=== PATIENT | female | born 1960 | race Hispanic/Latino ===

== ENCOUNTER 2018-02-10 10:32 | Emergency (ER) | payer SELFPAY ==
[~2018-02-10] VITALS: Ht 166.4 cm; Wt 69.1 kg
[~2018-02-10 10:32] MED LIST: ALAWAY0.025 % OP; FOLIC ACID5 MG PO; HYDROCORTISO2.51 EX; MAXEPA1000 M1 PO; RHEUMATREX2.5 M1 PO; VIT B-COMPLX100 MG PO; VITAMIN C500 M6 PO; VITAMIN D31000 UNI1 PO; [UNRECOGNIZED DRUG - CODE] EX
[2018-02-10 11:15] LABS: HEMATOCRIT 43.6 % (37.0-47.0); HEMOGLOBIN 14.1 g/dl (12.0-16.0); IMMATURE GRANULOCYTES 0.3 % (0.0-5.0); MEAN CELL VOLUME 88.6 fL CALC (80.0-100.0); MEAN CORPUSCULAR HGB 28.7 pG CALC (26.0-32.0); MEAN CORPUSCULAR HGB CONC 32.3 g/L CALC (32.0-36.0); NEUT# 5.24 thou/uL (2.00-7.15); RED BLOOD COUNT 4.92 mill/uL (4.20-5.60); RED CELL DISTRI WIDTH 13.7 % (11.5-15.5)
[2018-02-10 11:42] LABS: ALKALINE PHOSPHATASE 120 u/l (38-126); ANION GAP 12 (6-22 (CALC)); BILIRUBIN, TOTAL 0.5 mg/dL (0.0-1.4); BUN 14 mg/dL (7-17); BUN/CREATININE RATIO 23 (12-20 (CALC)); CARBON DIOXIDE 26 mmol/l (22-30); CHLORIDE 107 mmol/l (95-108); CREATININE 0.6 mg/dL (0.5-1.0); GFR > 60 ML/MIN (>=60 (CALC)); GFR FOR AFR.AMER. > 60 ML/MIN (>=60 (CALC)); POTASSIUM 4.1 mmol/l (3.5-5.1); SGOT/AST 22 u/l (14-36); SODIUM 141 mmol/l (137-146)
[2018-02-10 13:13] VITALS: BP 136/80
== END 2018-02-10 13:20 | disposition home or self-care (01) | DRG 103 ==
LOC: ED 10:32
PROVIDERS: Family Medicine
DX: R51 Headache (principal); H53.8 Other visual disturbances; M79.661 Pain in right lower leg; R11.0 Nausea
CPT/HCPCS: Q9967